=== PATIENT | female | born 1980 | race Caucasian/White ===

== ENCOUNTER 2016-06-15 10:01 | Outpatient (CLI) | payer OTHER ==
--- NOTE | 2016-06-15 11:30 | DIAGNOSTIC IMAGING REPORT ---
PROCEDURE: US OB DETAILED ANATOMIC INDICATION: ANATOMY TECHNIQUE: Duran scale, color, and spectral Doppler images of the second trimester gravid uterus were obtained. COMPARISON: None. FINDINGS: A single living intrauterine is in vertex presentation. There is regular cardiac activity at a rate of 144 beats per minute. The placenta is anterior and away from the internal cervical os. The cervix is closed measuring approximately 3.4 cm in length. The amniotic fluid volume is subjectively normal. Biparietal diameter 4.9 cm, 20 weeks 6 days Head circumference 18.5 cm, 20 weeks 6 days Abdominal circumference 16.5 cm, 21 weeks 4 days Femur length 3.6 cm, 21 weeks 4 days Head to abdominal circumference ratio and femur length to abdominal circumference ratios are normal. Estimated weight 425 g plus/minus 64 g, 21 weeks 2 days Composite gestational age 21 weeks 2 days There was visualization of a number of normal structures including the intracranial contents, facial features, nuchal region, spine, four-chamber heart and outflow tracts to the extent that could be visualized, diaphragm, fluid-filled stomach, kidneys, abdomen, urinary bladder, upper and lower extremities, and genitals. A three-vessel umbilical cord, normal and placental cord insertion sites were seen. IMPRESSION: 1. Single living intrauterine with a composite gestational age of 21 weeks 2 days, 5 days ahead of the clinically assigned gestational age. 2. Symmetric growth and normal anatomy.
== END 2016-06-15 23:00 ==
LOC: LAB SRH 10:01 → US SRH 10:01
DX: Z34.02 Encounter for supervision of normal first pregnancy, second trimester (principal)
CPT/HCPCS: 90004; 90039; 90074; 90078; 90261; 90364; 90599; 90600; 90605; 90606; 90710; 90851; 92863; 93140; 98480; 99777

== ENCOUNTER 2016-06-22 08:04 | Outpatient (CLI) | payer OTHER | END 2016-06-22 23:00 | LOC: LAB SRH 08:04 | DX: R73.02 Impaired glucose tolerance (oral) (principal) | CPT/HCPCS: 90074; 92652 ==

== ENCOUNTER → 2016-07-31 | Outpatient (CLI) | payer OTHER ==
--- NOTE | 2016-07-31 12:48 | DIAGNOSTIC IMAGING REPORT ---
PROCEDURE: US OB RE-EVALUATION INDICATION: SIZE LARGE FOR DATES TECHNIQUE: Duran scale, color, and spectral Doppler images of the second trimester gravid uterus were obtained. COMPARISON: OB ultrasound dated 06/15/2016 FINDINGS: A single living intrauterine is in vertex presentation. There is regular cardiac activity at a rate of 136 beats per minute. The placenta is anterior and away from the internal cervical os. The cervix is closed measuring approximately 3.5 cm in length. The amniotic fluid index is 18.0 centimeters which is between the 50th (14.6 cm) and 95th (22.6cm) percentile. Biparietal diameter 7.4 cm at 29 weeks and 3-day Head circumference 26.1 cm at 28 weeks and 3-day Abdominal circumference 24.4 cm at 28 weeks and 5-day Femur length 5.3 cm at 28 weeks and 0 days Head to abdominal circumference ratio and femur length to abdominal circumference ratios are normal. Estimated weight 1229 g Composite gestational age 28 weeks and 5 days, MOHAMUD 10/18/2016 Stomach bladder and kidneys are normal. IMPRESSION: 1. Single living intrauterine with a composite gestational age of 28 weeks and 5 days, MOHAMUD 10/18/2016 2. SAIRA between the 50th and 95th percentiles
== END ==
LOC: US SRH 10:55
DX: Z34.02 Encounter for supervision of normal first pregnancy, second trimester (principal); Z3A.28 28 weeks gestation of pregnancy

== ENCOUNTER 2016-08-24 07:57 | Outpatient (CLI) | payer OTHER | END 2016-08-25 15:14 | disposition home or self-care (01) | LOC: LAB SRH 07:57 | DX: Z34.03 Encounter for supervision of normal first pregnancy, third trimester (principal) | CPT/HCPCS: 90074; 92652 ==